=== PATIENT | male | born 1955 | race Caucasian/White ===

== ENCOUNTER 2022-04-04 15:32 | Outpatient (CLI) | payer MEDICARE, OTHER | END 2022-04-04 15:33 | disposition home or self-care (01) | LOC: BICULT 15:32 | PROVIDERS: ATTEND Otolaryngology Plastic Surgery within the Head & Neck | DX: E07.9 Disorder of thyroid, unspecified (principal); E04.2 Nontoxic multinodular goiter | CPT/HCPCS: 76536 ==

== ENCOUNTER 2022-11-04 08:07 | Outpatient (CLI) | payer MEDICARE, OTHER | END 2022-11-04 08:08 | disposition home or self-care (01) | LOC: TBSIIMAG 08:07 | PROVIDERS: ATTEND Specialist | DX: M48.02 Spinal stenosis, cervical region (principal); M50.122 Cervical disc disorder at C5-C6 level with radiculopathy; M47.22 Other spondylosis with radiculopathy, cervical region; G95.19 Other vascular myelopathies | CPT/HCPCS: 72141 ==

== ENCOUNTER 2022-12-01 09:25 | Outpatient (CLI) | payer MEDICARE, OTHER | END 2022-12-01 09:26 | disposition home or self-care (01) | LOC: TBSIIMAG 09:25 | PROVIDERS: ATTEND Physician Assistant | DX: M54.2 Cervicalgia (principal); M47.812 Spondylosis without myelopathy or radiculopathy, cervical region; R22.2 Localized swelling, mass and lump, trunk; E07.89 Other specified disorders of thyroid; Q32.1 Other congenital malformations of trachea | CPT/HCPCS: 72050 ==

== ENCOUNTER 2022-12-15 12:29 | Outpatient (CLI) | payer MEDICARE, OTHER | END 2022-12-15 12:30 | disposition home or self-care (01) | LOC: TBSIIMAG 12:29 | PROVIDERS: ATTEND Urology | DX: C61 Malignant neoplasm of prostate (principal); Z90.79 Acquired absence of other genital organ(s) | CPT/HCPCS: 72197; 82565 ==

== ENCOUNTER 2023-01-20 10:51 | Outpatient (CLI) | payer MEDICARE, OTHER ==
[2023-01-20 12:35] LABS: Hemoglobin 15.3 g/dL (13.5-17.5); Mean Corpuscular HGB CONC 34.6 g/dL (32.0-36.0); Mean Corpuscular Hemoglobin 31.7 pg (27.0-33.0); Mean Corpuscular Volume 91.7 fl (81.2-95.1); Mean Platelet Volume 10.2 fl (7.4-10.4); Platelet Count 270 10x3/uL (150-450); RBC Distribution Width 12.8 % (11.5-14.5); Red Blood Cell (RBC) Count 4.82 10x6/uL (4.32-5.72); White Blood Cell (WBC) Count 19.7 10x3/uL (3.5-10.5)
[2023-01-20 12:42] LABS: PTT 27.7 sec (22.0-33.0); Prothrombin Time 10.9 sec (9.5-12.1)
== END 2023-01-20 10:52 | disposition home or self-care (01) ==
LOC: LABBT 10:51
PROVIDERS: ATTEND Neurological Surgery
DX: Z01.812 Encounter for preprocedural laboratory examination (principal); M50.222 Other cervical disc displacement at C5-C6 level
CPT/HCPCS: 85027; 85610; 85730

== ENCOUNTER 2023-01-23 05:38 | Day surgery (SDC) | payer MEDICARE, OTHER ==
[2023-01-20 12:23] VITALS: BMI 23.6
[2023-01-23] MEDS ORDERED: Vancomycin 1 GM VIAL ONE (06:12)
[2023-01-23] MEDS ORDERED: Thrombin 5000 UNITS/5 ML VIAL ONE (06:12)
[2023-01-23] MEDS ORDERED: fentaNYL PF 100 MCG/2 ML SYRINGE ONE (06:28)
[2023-01-23] MEDS ORDERED: Sodium Chloride 0.9% 100 ML ONE (06:41)
[2023-01-23] MEDS ORDERED: CEFAZOLIN 2 GM VIAL ONE (06:41)
[2023-01-23] MEDS ORDERED: Ondansetron PF 4 MG/2 ML Vial ONE (07:01)
[2023-01-23] MEDS ORDERED: PHENYLEPHRINE-NS 100 MCG/ML 10 ML SYRINGE ONE (07:01)
[2023-01-23] MEDS ORDERED: Rocuronium Bromide 10 MG/ML (10ML VIAL) ONE (07:01)
[2023-01-23] MEDS ORDERED: Lidocaine 1% PF 5 ML VIAL ONE (07:01)
[2023-01-23] MEDS ORDERED: NEOSTIGMINE 3 MG/3 ML SYR 3 MG/3 ML SYRINGE ONE (07:01)
[2023-01-23] MEDS ORDERED: PROPOFOL 200 MG/20 ML VIAL ONE (07:01)
[2023-01-23] MEDS ORDERED: Dexamethasone 20 MG/5 ML VIAL ONE (07:01)
[2023-01-23] MEDS ORDERED: Glycopyrrolate 0.2 MG/ML 5 ML SYRINGE ONE (07:01)
[2023-01-23] MEDS ORDERED: fentaNYL 50 mcg/mL 1 mL Vial ONE (09:13)
[2023-01-23] MEDS ORDERED: Tamsulosin HCl 0.4 MG CAP ONE (09:13)
== END 2023-01-23 10:25 | disposition home or self-care (01) ==
LOC: SDC 05:38
PROVIDERS: ATTEND Neurological Surgery
PROC: 0RG10A0 Fusion of Cervical Vertebral Joint with Interbody Fusion Device, Anterior Approach, Anterior Column, Open Approach (ICD-10-PCS; principal; 2023-01-23)
DX: M50.022 Cervical disc disorder at C5-C6 level with myelopathy (principal); M50.122 Cervical disc disorder at C5-C6 level with radiculopathy; M48.02 Spinal stenosis, cervical region; I10 Essential (primary) hypertension; E89.0 Postprocedural hypothyroidism; M19.90 Unspecified osteoarthritis, unspecified site; N40.0 Benign prostatic hyperplasia without lower urinary tract symptoms; Z87.891 Personal history of nicotine dependence; Z79.899 Other long term (current) drug therapy
CPT/HCPCS: 20930; 20936; 22551; 22845; 22853; C1713 ×5; J3010; J1100; J2405; J2704; J3370; J3490